=== PATIENT | female | born 1960 | race Caucasian/White ===

== ENCOUNTER 2016-06-02 14:23 | Emergency (ER) | payer OTHER ==
--- NOTE | 2016-06-02 19:28 | ED ORDER SUMMARY ---
..... Patient: BRANDEN MARTINEZ OrderSheet [facility] VisitID: [id number] [address] [place] [address] 55y, F Registration Date/Time: 06/02/2016 ORDER SHEET Weight: 76.6 kg (stated) Allergies: Percocet GENERAL ORDERS: Rapid Influenza Screen (Nasal Pharyngeal) (flu) Urgent (14:37 06/02/2016 ASchmuck per protocol) (Ack 14:54 RKaruga) (14:59 ASchmuck) CBC w Diff Urgent (14:49 06/02/2016 KKnebel R.N. per protocol) (Ack 14:54 RKaruga) (14:59 ASchmuck) CMP Urgent (14:49 06/02/2016 KKnebel R.N. per protocol) (Ack 14:54 RKaruga) (14:59 ASchmuck) - (po challenge fluids) (16:38 06/02/2016 Jazzy MONGE) (16:47 ASchmuck) MEDICATION ORDERS: Phenergan IV 12.5 mg (NOW) (16:37 06/02/2016 Jazzy MONGE) (16:49 ASchmuck) Hydrocodone-APAP PO 10/650 mg (NOW) (16:38 06/02/2016 Jazzy MONGE) (16:49 ASchmuck) IV FLUIDS: IV Saline Lock (14:49 06/02/2016 Brit R.N. per protocol) (14:50 KKnebel R.N.) IV NS : initial bolus 1000 mL (1000 mL/hr), then 500 mL/hr for 2h (NOW); Routine (15:26 06/02/2016 Jazzy MONGE) (15:35 ASchmuck) Zofran IV 4 mg (NOW) (15:26 06/02/2016 Jazzy MONGE) (15:35 ASchmuck) ORDER SHEET NOTES: [Electronically signed by Cong Stanton MD (20:08 06/02/2016)] [Electronically signed by Tk Carlson R.N. (20:33 06/02/2016)] [Electronically locked/signed by Tk Carlson R.N. (20:33 06/02/2016)]
--- NOTE | 2016-06-02 19:28 | ED CLINICAL REPORT ---
Clinical Report - Physicians/Mid Levels [facility] [address] [place] [address] 06/02/2016 14:23 Patient: BRANDEN MARTINEZ Time Seen: 15:21 Jun 02 2016. Arrived- By private vehicle. Historian- patient. CPT: ER phys charges level 4 (#[id number]). HISTORY OF PRESENT ILLNESS Chief Complaint: VOMITING and DIARRHEA. This started about 5 days ago and is still present. The patient has had nausea, moderate vomiting. The vomiting has occurred several times and mild abdominal pain. The pain is described as located in the central area of the abdomen. She has had moderate diarrhea. This has occurred several times. She has had contact with a sick family member. Symptoms of the sick contact include nausea, vomiting and diarrhea. They have had similar symptoms. The illness is described as moderate. Similar symptoms previously: None. Recent medical care: Not recently seen/assessed. REVIEW OF SYSTEMS No fever, muscle aches, difficulty with urination, dark urine or dizziness. No sore throat, chest pain, difficulty breathing, skin rash or jaundice. No back pain. She has had a headache. She has had a cough (chronically). All systems otherwise negative, except as recorded above. PAST HISTORY Dental Caries. Dental Abscess. Dental Pain. Back Pain. Arthritis. COPD - Chronic Obstructive Pulmonary Disease. Medications: Cris-D Allergy & Congestion Oral. Albuterol Sulfate Inhalation. Nebulizer. Omeprazole Oral. Spiriva HandiHaler Inhalation. Allergies: Percocet.(vomiting). SOCIAL HISTORY Smoker- current status unknown. ADDITIONAL NOTES The nursing notes have been reviewed. PHYSICAL EXAM Vital Signs: 06/02/2016 14:36 BP: 107/52. HR: 76. RR: 17. O2 saturation: 95%. Temp: 100.5 F. Appearance: Alert. No acute distress. Eyes: Eyes normal inspection. ENT: Nose normal. Dry mucous membranes present. Pharynx normal. Neck: Normal inspection. Neck supple. CVS: Normal heart rate and rhythm. Heart sounds normal. Pulses normal. Respiratory: No respiratory distress. Breath sounds normal. Abdomen: Soft and nontender. Bowel sounds normal. Back: Normal inspection. Skin: Skin warm. Normal skin color. No rash. Extremities: Extremities exhibit normal ROM. No lower extremity edema. Neuro: Oriented X 3. No motor deficit. No sensory deficit. LABS, X-RAYS, AND EKG Laboratory Tests: CBC w Diff: (BRADY: 06/02/2016 14:44) ( MsgRcvd 06/02/2016 15:05) Final results Test Result Flag Units (Reference) WHITE BLOOD COUNT 5.7 K/uL (4.5-11.5) RED BLOOD COUNT 4.52 M/uL (4.00-5.20) HEMOGLOBIN 13.6 gm/dL (12.0-16.0) HEMATOCRIT 40.3 % (36.0-46.0) MEAN CELL VOLUME 89 fL (80-100) MEAN CORPUSCULAR HGB 30 pg (26-34) MEAN CORPUSCULAR HGB CONC 34 g/dL (31-37) RED CELL DISTRIBUTION WIDTH 14.0 % (11.6-14.8) PLATELET COUNT 179 K/uL (150-400) NEUTROPHIL % 75.4 H % (50-75) LYMPH % 12.7 L % (25-40) MONO % 11.7 % (3-14) EOSINOPHIL % 0 % (0-4) BASOPHIL % 0.2 % (0-2) CMP: (BRADY: 06/02/2016 14:44) ( MsgRcvd 06/02/2016 15:48) Final results Test Result Flag Units (Reference) GLUCOSE 110 mg/dL (70-110) BUN 21 H mg/dL (7-18) CREATININE 1.1 mg/dL (0.6-1.3) Estimated GFR 54.41 mL/min Estimated GFR- >60 mL/min Note: Persistent reduction over 3 months in eGFR<60 mL/min/1.73 m2 defines CKD. Patients with eGFR values>=60 mL/min/1.73 m2 may also have CKD if evidence ofpersistent proteinuria. Additional information may be foundat www.kidney.org. SODIUM 135 L mmol/L (136-145) POTASSIUM 3.6 mmol/L (3.5-5.1) CHLORIDE 98 mmol/L (98-107) CARBON DIOXIDE 27 mmol/L (21-32) CALCIUM 8.9 mg/dL (8.5-10.1) TOTAL PROTEIN 7.6 g/dL (6.4-8.2) ALBUMIN 3.4 g/dL (3.3-5.0) BILIRUBIN, TOTAL 0.3 mg/dL (0.0-1.0) ALKALINE PHOSPHATASE 83 U/L (46-116) AST (SGOT) 32 U/L (15-37) ALT (SGPT) 50 U/L (12-78) Rapid Influenza Screen: (BRADY: 06/02/2016 14:40) ( MsgRcvd 06/02/2016 15:03) Final results SPECIMEN DESCRIPTION: FLU Test Result Flag Units (Reference) RAPID INFLUENZA SCREEN DATE: 06/02/16 INFLUENZA A: NEGATIVE SCREEN FOR INFLUENZA A INFLUENZA B: NEGATIVE SCREEN FOR INFLUENZA B . PROGRESS AND PROCEDURES Course of Care: IV NS 1 liter Zofran 4 mg IV Patient is stable. Symptoms much better. Passed po challenge. Vicodin 2 [po. Patient/family counseled. Disposition: Discharged. Condition: stable and improved. CLINICAL IMPRESSION Acute viral gastroenteritis with volume depletion. Headache due to illness. INSTRUCTIONS Take clear liquids only (frequent sips) for the next 48 hours until better. Advance diet as tolerated. Warnings: Further evaluation is necessary. Your Current Medications: CONTINUE TAKING THE FOLLOWING MEDICATIONS: Albuterol Sulfate Inhalation. Cris-D Allergy & Congestion Oral. Nebulizer*. Omeprazole Oral. Spiriva HandiHaler Inhalation. Prescription Medications: Zofran (orally disintegrating tablets) 4 mg: take 1 orally every 6 hours as needed for nausea. Dispense ten (10). No refill. Follow-up: Follow up with your doctor in five days if not better. Understanding of the discharge instructions verbalized by patient. Discharge instructions reviewed with and understanding was verbalized by classifying machine operator. (Electronically signed by Cong Stanton MD 06/02/2016 20:08)
--- NOTE | 2016-06-02 19:28 | ED NURSING NOTES ---
Clinical Report - Nurses [facility] [address] [place] [address] 06/02/2016 14:23 Patient: BRANDEN MARTINEZ TRIAGE Triage time 14:30 Jun 02 2016. Acuity: LEVEL 3. Chief Complaint: COUGH and (N/V/D). 14:36 06/02/16. Alert. No acute distress. SEPSIS SCREEN: Sepsis Screen. Negative (no infection suspected/documented). DODIE COMA SCORE: Dodie Coma Scale: 15- eyes open spontaneously (4); best verbal response- oriented x 4 (5); best motor response- obeys commands (6). --14:36 Cassie Riggins 14:36 06/02/16. BP: 107/52. HR: 76. RR: 17. O2 saturation: 95%. Temp: 100.5 F. Pain level now 8/10. --14:36 Cassie Riggins. Weight: 76.6 kg stated. Height/Length: 65 inches Per Patient. BMI: 28.1. --14:35 Cassie Riggins. Medications Spiriva HandiHaler Inhalation. --14:33 Cassie Riggins Omeprazole Oral. --14:34 Cassie Riggins Nebulizer. --14:34 Cassie Riggins Albuterol Sulfate Inhalation. --14:34 Cassie Riggins Cris-D Allergy & Congestion Oral. --14:34 Cassie Riggins. Medication/allergy information source: the patient. --14:36 Cassie Riggins. Allergies Percocet.(vomiting) --14:33 Cassie Riggins. History Arrived by EMS. Historian: patient. Unaccompanied. Primary physician (Joshua). Onset. (Sunday). ( Pt reports that she has been sick since Sunday. Has headache and body aches.). She has had fatigue, a headache, abdominal pain, vomiting and diarrhea. No known contact with a sick individual. No recent travel. 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 PAST MEDICAL HX: Chronic obstructive pulmonary disease. No history of pneumonia, asthma or diabetes mellitus. Immunizations: up-to-date and has received pneumonia vaccine; seasonal influenza. SOCIAL HX: No recent travel. She has had contact with a sick family member. FALL RISK ASSESSMENT: Fall risk assessment completed. No fall risk identified. NUTRITIONAL RISK ASSESSMENT: The nutritional risk assessment revealed no deficiencies. FUNCTIONAL ASSESSMENT: Functional assessment: no impairments noted. LEARNING NEEDS ASSESSMENT: The learning needs assessment revealed no barriers. SKIN INTEGRITY ASSESSMENT: Skin integrity risk assessment completed. No skin integrity risk identified. --14:36 Cassie Riggins. PROBLEMS: Dental Caries. Dental Abscess. Dental Pain. Back Pain. Arthritis. COPD - Chronic Obstructive Pulmonary Disease. --14:33 Cassie Riggins. Assessment The patient states feels the same. --14:36 Cassie Riggins. Interventions ID band on patient. --14:36 Cassie Riggins. PHYSICAL ASSESSMENT 14:36 06/02/16. To room via stretcher. Patient gowned. GENERAL / NEURO / PSYCH: Alert. Oriented X 4. Appears in no acute distress. HEENT: Pupils equal, round and reactive to light. Mucous membranes are pink. RESPIRATORY: Respirations not labored. CVS: Capillary refill less than 2 seconds. Pulses within normal limits. GI / : Abdomen soft. SKIN: Skin intact. Skin is warm and dry. Normal skin turgor. --14:36 Cassie Riggins. NURSING PROGRESS NOTES 14:37 06/02/16. The plan of care for this patient has been created. Pulse oximeter applied; monitor alarms on. Patient gowned. Head of bed elevated. Reassurance given. Two patient identifiers checked. Call light placed in reach. Side rails up x 1. Bed placed in lowest position. Brakes of bed on. Patient ready for evaluation- chart flagged and ED physician and HOURLY SHIFT MANAGER notified. --14:37 Cassie Riggins 14:40 06/02/16. Patient ID band checked for patient name and birthdate: patient confirmed. Flu swab obtained by RN via nasal pharyngeal swab. Labeled in the presence of the patient and sent to lab. --14:57 Cassie Riggins 14:44 06/02/2016 Site #1 started via IV in the left hand with an 22g angiocath, with aseptic technique and good blood return; one attempt. Blood drawn: rainbow set. Labeled in the presence of the patient and sent to the lab. Saline lock flushed with 10 mL saline. --14:49 Nicky Shukla R.N. 15:23 06/02/16. BP: 107/52. HR: 70. RR: 17. O2 saturation: 96% on room air. --15:24 Cassie Riggins 15:35 06/02/2016 Started bag #1 1000 mL IV Fluids IV NS (Saline); at 1000 mL/hr over 1 hour(s) via site #1 via IV pump. Allergies verified and confirmed 5 rights. IV patency established. IV site checked: no pain, redness, or swelling. IV flushed thoroughly pre- and post-medication administration. --15:35 Cassie Riggins 15:35 06/02/2016 Zofran (Ondansetron HCl) IVP 4 mg given over 1 minute(s) via site #1. Allergies verified and confirmed 5 rights. IV patency established. IV site checked: no pain, redness, or swelling. IV flushed thoroughly pre- and post-medication administration. IVP given by RN. --15:35 Cassie Riggins 16:32 06/02/16. BP: 100/47. HR: 74. RR: 16. O2 saturation: 97%. --16:34 Cassie Riggins 16:38 06/02/2016 IV Fluids IV NS Bag Change: bag #1 infused. Total amount infused: 1000. STARTED bag #2 (1000 mL) at 500 mL/hr via IV pump. Confirmed 5 rights. IV patency established. IV site checked: no pain, redness, or swelling. IV flushed thoroughly. --16:38 Cassie Riggins 16:48 06/02/2016 Started 12.5 mg of PHENERGAN (Promethazine HCl) IVPB in bag #1 50 mL; at 200 mL/hr over 15 minute(s) via site #1 via IV pump. Allergies verified and confirmed 5 rights. IV patency established. IV site checked: no pain, redness, or swelling. IV flushed thoroughly pre- and post-medication administration. --16:49 Cassie Riggins 16:49 06/02/2016 Hydrocodone-APAP (Hydrocodone-Acetaminophen) PO 5/325 mg Tablets 1 tab given. Allergies verified, confirmed 5 rights and sedative warning given to the patient. --16:49 Cassie Riggins 17:08 06/02/16. Care transferred and report given (Tk, RN). --17:08 Cassie Riggins 17:30. ( Patient reported some incontinence of urine. Helped PT with a change of incontinence underwear and changed bed linen. helped pt up for toileting and settled back in to bed. Visitor at bedside when settled back). --17:40 Shivani Fishman 18:15 06/02/16. ( Pt took a sip of water about 5 minutes ago and tolerated it without N/V.). --18:19 Tk Carlson R.N. 18:45 06/02/2016 IV Fluids IV NS Discontinued: bag #2 infused. Total amount infused: 1000 mL. IV patency established. IV site checked: no pain, redness, or swelling. IV flushed thoroughly. --20:29 Tk Carlson R.N. 19:05 06/02/2016 Site #1 removed upon discharge. Catheter intact. Manual pressure, pressure dressing and bandaid applied. --20:30 Tk Carlson R.N. 18:15 06/02/16. BP: 108/55. HR: 71. RR: 16. O2 saturation: 96% on room air. Pain level now: 06/16. Additional comments: pain is BAPTISTE. --20:32 Tk Carlson R.N. DISPOSITION / DISCHARGE 19:00 06/02/16. BP: 101/46. HR: 66. RR: 16. O2 saturation: 96% on room air. Temp: 98.7 F (oral). Pain level now: 04/18. Additional comments: pain is BAPTISTE. --20:02 Tk Carlson R.N. Departure time: 1924. --20:02 Tk Carlson R.N. 19:25. Condition at departure: improved. No learning barriers present. Discharge instructions provided and reviewed with the patient. Reviewed medication(s) (prescription given to pt. Cntinue your usual Medications.). Reviewed referral to family practice for followup. Patient verbalized understanding. Written instructions provided in Micronesian. The patient was discharged by the physician. She was discharged home and accompanied by municipal services manager. She left the Emergency Department ambulatory and via private vehicle. Overhead Irrigator driving. --20:06 Tk Carlson R.N. Locked/Released at 06/02/2016 20:33 by Tk Carlson R.N.
--- NOTE | 2016-06-02 19:28 | ED ORDER SUMMARY ---
..... Patient: BRANDEN MARTINEZ OrderSheet [facility] VisitID: [id number] [address] [place] [address] 55y, F Registration Date/Time: 06/02/2016 ORDER SHEET Weight: 76.6 kg (stated) Allergies: Percocet GENERAL ORDERS: Rapid Influenza Screen (Nasal Pharyngeal) (flu) Urgent (14:37 06/02/2016 ASchmuck per protocol) (Ack 14:54 RKaruga) (14:59 ASchmuck) CBC w Diff Urgent (14:49 06/02/2016 KKnebel R.N. per protocol) (Ack 14:54 RKaruga) (14:59 ASchmuck) CMP Urgent (14:49 06/02/2016 KKnebel R.N. per protocol) (Ack 14:54 RKaruga) (14:59 ASchmuck) - (po challenge fluids) (16:38 06/02/2016 Jazzy MONGE) (16:47 ASchmuck) MEDICATION ORDERS: Phenergan IV 12.5 mg (NOW) (16:37 06/02/2016 Jazzy MONGE) (16:49 ASchmuck) Hydrocodone-APAP PO 10/650 mg (NOW) (16:38 06/02/2016 Jazzy MONGE) (16:49 ASchmuck) IV FLUIDS: IV Saline Lock (14:49 06/02/2016 Brit R.N. per protocol) (14:50 KKnebel R.N.) IV NS : initial bolus 1000 mL (1000 mL/hr), then 500 mL/hr for 2h (NOW); Routine (15:26 06/02/2016 Jazzy MONGE) (15:35 ASchmuck) Zofran IV 4 mg (NOW) (15:26 06/02/2016 Jazzy MONGE) (15:35 ASchmuck) ORDER SHEET NOTES: [Electronically signed by Cong Stanton MD (20:08 06/02/2016)] [Electronically signed by Tk Carlson R.N. (20:33 06/02/2016)] [Electronically locked/signed by Tk Carlson R.N. (20:33 06/02/2016)]
--- NOTE | 2016-06-02 19:28 | ED CLINICAL REPORT ---
Clinical Report - Physicians/Mid Levels [facility] [address] [place] [address] 06/02/2016 14:23 Patient: BRANDEN MARTINEZ Time Seen: 15:21 Jun 02 2016. Arrived- By private vehicle. Historian- patient. CPT: ER phys charges level 4 (#[id number]). HISTORY OF PRESENT ILLNESS Chief Complaint: VOMITING and DIARRHEA. This started about 5 days ago and is still present. The patient has had nausea, moderate vomiting. The vomiting has occurred several times and mild abdominal pain. The pain is described as located in the central area of the abdomen. She has had moderate diarrhea. This has occurred several times. She has had contact with a sick family member. Symptoms of the sick contact include nausea, vomiting and diarrhea. They have had similar symptoms. The illness is described as moderate. Similar symptoms previously: None. Recent medical care: Not recently seen/assessed. REVIEW OF SYSTEMS No fever, muscle aches, difficulty with urination, dark urine or dizziness. No sore throat, chest pain, difficulty breathing, skin rash or jaundice. No back pain. She has had a headache. She has had a cough (chronically). All systems otherwise negative, except as recorded above. PAST HISTORY Dental Caries. Dental Abscess. Dental Pain. Back Pain. Arthritis. COPD - Chronic Obstructive Pulmonary Disease. Medications: Cris-D Allergy & Congestion Oral. Albuterol Sulfate Inhalation. Nebulizer. Omeprazole Oral. Spiriva HandiHaler Inhalation. Allergies: Percocet.(vomiting). SOCIAL HISTORY Smoker- current status unknown. ADDITIONAL NOTES The nursing notes have been reviewed. PHYSICAL EXAM Vital Signs: 06/02/2016 14:36 BP: 107/52. HR: 76. RR: 17. O2 saturation: 95%. Temp: 100.5 F. Appearance: Alert. No acute distress. Eyes: Eyes normal inspection. ENT: Nose normal. Dry mucous membranes present. Pharynx normal. Neck: Normal inspection. Neck supple. CVS: Normal heart rate and rhythm. Heart sounds normal. Pulses normal. Respiratory: No respiratory distress. Breath sounds normal. Abdomen: Soft and nontender. Bowel sounds normal. Back: Normal inspection. Skin: Skin warm. Normal skin color. No rash. Extremities: Extremities exhibit normal ROM. No lower extremity edema. Neuro: Oriented X 3. No motor deficit. No sensory deficit. LABS, X-RAYS, AND EKG Laboratory Tests: CBC w Diff: (BRADY: 06/02/2016 14:44) ( MsgRcvd 06/02/2016 15:05) Final results Test Result Flag Units (Reference) WHITE BLOOD COUNT 5.7 K/uL (4.5-11.5) RED BLOOD COUNT 4.52 M/uL (4.00-5.20) HEMOGLOBIN 13.6 gm/dL (12.0-16.0) HEMATOCRIT 40.3 % (36.0-46.0) MEAN CELL VOLUME 89 fL (80-100) MEAN CORPUSCULAR HGB 30 pg (26-34) MEAN CORPUSCULAR HGB CONC 34 g/dL (31-37) RED CELL DISTRIBUTION WIDTH 14.0 % (11.6-14.8) PLATELET COUNT 179 K/uL (150-400) NEUTROPHIL % 75.4 H % (50-75) LYMPH % 12.7 L % (25-40) MONO % 11.7 % (3-14) EOSINOPHIL % 0 % (0-4) BASOPHIL % 0.2 % (0-2) CMP: (BRADY: 06/02/2016 14:44) ( MsgRcvd 06/02/2016 15:48) Final results Test Result Flag Units (Reference) GLUCOSE 110 mg/dL (70-110) BUN 21 H mg/dL (7-18) CREATININE 1.1 mg/dL (0.6-1.3) Estimated GFR 54.41 mL/min Estimated GFR- >60 mL/min Note: Persistent reduction over 3 months in eGFR<60 mL/min/1.73 m2 defines CKD. Patients with eGFR values>=60 mL/min/1.73 m2 may also have CKD if evidence ofpersistent proteinuria. Additional information may be foundat [email or web address].org. SODIUM 135 L mmol/L (136-145) POTASSIUM 3.6 mmol/L (3.5-5.1) CHLORIDE 98 mmol/L (98-107) CARBON DIOXIDE 27 mmol/L (21-32) CALCIUM 8.9 mg/dL (8.5-10.1) TOTAL PROTEIN 7.6 g/dL (6.4-8.2) ALBUMIN 3.4 g/dL (3.3-5.0) BILIRUBIN, TOTAL 0.3 mg/dL (0.0-1.0) ALKALINE PHOSPHATASE 83 U/L (46-116) AST (SGOT) 32 U/L (15-37) ALT (SGPT) 50 U/L (12-78) Rapid Influenza Screen: (BRADY: 06/02/2016 14:40) ( MsgRcvd 06/02/2016 15:03) Final results SPECIMEN DESCRIPTION: FLU Test Result Flag Units (Reference) RAPID INFLUENZA SCREEN DATE: 06/02/16 INFLUENZA A: NEGATIVE SCREEN FOR INFLUENZA A INFLUENZA B: NEGATIVE SCREEN FOR INFLUENZA B . PROGRESS AND PROCEDURES Course of Care: IV NS 1 liter Zofran 4 mg IV Patient is stable. Symptoms much better. Passed po challenge. Vicodin 2 [po. Patient/family counseled. Disposition: Discharged. Condition: stable and improved. CLINICAL IMPRESSION Acute viral gastroenteritis with volume depletion. Headache due to illness. INSTRUCTIONS Take clear liquids only (frequent sips) for the next 48 hours until better. Advance diet as tolerated. Warnings: Further evaluation is necessary. Your Current Medications: CONTINUE TAKING THE FOLLOWING MEDICATIONS: Albuterol Sulfate Inhalation. Cris-D Allergy & Congestion Oral. Nebulizer*. Omeprazole Oral. Spiriva HandiHaler Inhalation. Prescription Medications: Zofran (orally disintegrating tablets) 4 mg: take 1 orally every 6 hours as needed for nausea. Dispense ten (10). No refill. Follow-up: Follow up with your doctor in five days if not better. Understanding of the discharge instructions verbalized by patient. Discharge instructions reviewed with and understanding was verbalized by ophthalmic technologist. (Electronically signed by Cong Stanton MD 06/02/2016 20:08)
--- NOTE | 2016-06-02 20:33 | ED MED RECONCILIATION SUMMARY ---
Patient: BRANDEN MARTINEZ Medication Reconciliation Report [facility] VisitID: [id number] [address] [place] [address] 55y, F Registration Date/Time: 06/02/2016 Weight: 76.6 kg Height/Length: 65 in. BMI: 28.1 ALLERGIES: Percocet The patient's Home Medications are listed below: CONTINUE TAKING THE FOLLOWING MEDICATIONS: Albuterol Sulfate Inhalation Cris-D Allergy & Congestion Oral Nebulizer Omeprazole Oral Spiriva HandiHaler Inhalation The source(s) of the original Home Medication information: patient The following Medications were given to the patient in the Emergency Department: IV NS IV Fluids bolus 0, then 1000 mL/hr, administered: 06/02/2016 3:35:00 PM Zofran [IVP] IVP 4 mg, administered: 06/02/2016 3:35:00 PM PHENERGAN [IVPB] IVPB bolus 0, then 12.5 mg 200 mL/hr, administered: 06/02/2016 4:48:00 PM Hydrocodone-APAP [PO] PO 1 tab, administered: 06/02/2016 4:49:00 PM The following Medications were prescribed to the patient: Zofran (orally disintegrating tablets) 4 mg: take 1 orally every 6 hours as needed for nausea. Dispense ten (10). No refill. -- Cong Stanton MD
--- NOTE | 2016-06-02 20:33 | ED DISCHARGE INSTRUCTIONS ---
Patient: BRANDEN MARTINEZ General Instructions [facility] VisitID: [id number] [place] [address] 55y, F Registration Date/Time: 06/02/2016 Acute viral gastroenteritis with volume depletion. Headache due to illness. INSTRUCTIONS Take clear liquids only (frequent sips) for the next 48 hours until better. Advance diet as tolerated. Warnings: Further evaluation is necessary. Your Current Medications: CONTINUE TAKING THE FOLLOWING MEDICATIONS: Albuterol Sulfate Inhalation. Cris-D Allergy & Congestion Oral. Nebulizer*. Omeprazole Oral. Spiriva HandiHaler Inhalation. Prescription Medications: Zofran (orally disintegrating tablets) 4 mg: take 1 orally every 6 hours as needed for nausea. Dispense ten (10). No refill. Follow-up: Follow up with your doctor in five days if not better. Understanding of the discharge instructions verbalized by patient. Discharge instructions reviewed with and understanding was verbalized by network liaison. ADDITIONAL INFORMATION Viral Gastroenteritis (6Yr-Adult) Gastroenteritis is another name for thestomach flu.It is most often caused by a virus that affects the stomach and intestinal tract. Symptoms include stomach cramping and fever, vomiting and/or diarrhea, and can last from 2 to 7 days. The danger from repeated vomiting or diarrhea is dehydration. This is the loss of too much water and minerals from the body. When this occurs, body fluids must be replaced. Antibiotics are not effective for this illness, but simple home treatment will be helpful. Home Care If symptoms are severe, rest at home for the next 24 hours. Avoid tobacco, caffeine, and alcohol use, which can worsen symptoms. Acetaminophen (Tylenol) or ibuprofen (Motrin, Advil) may be usedfor fever or pain unless another medication was prescribed. NOTE: If you have chronic liver or kidney disease or ever had a stomach ulcer or GI bleeding, talk with your doctor before using these medicines. Aspirin should never be used in anyone under 18 years of age who is ill with a fever. It may cause severe liver damage. If medicines for diarrhea or vomiting were prescribed, be sure they are takenonly as directed. If vomiting, drink small amounts of clear fluids (such as water, sports drinks, clear sodas) at frequent intervals to prevent dehydration. Start with 1 to 2 tablespoons every 10 minutes. Once vomiting stops, follow these guidelines: During The First 12 To 24 Hours follow the diet below: Beverages: Sport drinks like Gatorade, soft drinks without caffeine; virgil divya, mineral water (plain or flavored), decaffeinated tea and coffee. Soups: Clear broth, consomm and bouillon Desserts: Plain gelatin (Jell-O), Popsicles and fruit juice bars. During The Next 24 Hours you may add the following to the above: Hot cereal, plain toast, bread, rolls, crackers Plain noodles, rice, mashed potatoes, chicken noodle or rice soup Unsweetened canned fruit (avoid pineapple), bananas Limit fat intake to less than 15 grams per day by avoiding margarine, butter, oils, mayonnaise, sauces, gravies, fried foods, peanut butter, meat, poultry, and fish. Limit fiber; avoid raw or cooked vegetables, fresh fruits (except bananas), and bran cereals. Limit caffeine and chocolate. Do not use spices or seasonings except salt. During The Next 24 Hours The patient can gradually resume a normal diet as symptoms lessen. Preventing Spread Hand washing with soap and water is the best way to prevent the spread of viruses. Caregivers should wash their hands before andafter touching the sick person. The sick person, as well as everyone in the family,should wash their hands after using the toilet and before meals. Clean the toilet after each use. People with diarrhea should not prepare food for others. If you are preparing your own foods, wash your hands before and after. Follow Up with your doctor as advised. Call your doctor if you are not improving over the next 2 to 3 days. If a stool (diarrhea) sample was taken, you may call in 2 days (or as directed) for the results. Get Prompt Medical Attention if any of the following occur: Increasing abdominal pain Continued vomiting (unable to keep liquids down) Frequent diarrhea (more than 5 times a day) Blood in vomit or stool (black or red color) Dark urine, reduced urine output, or extreme thirst Weakness, dizziness, fainting Drowsiness, confusion, stiff neck, or seizure Fever of 100.4F (38C) oral or higher, not better with fever medication New rash Clear Liquid Diet Clear liquids are any liquid that you can see through as well as those that are very easy to digest. This is used while the body is recovering from irritation or infection of the stomach or intestinal tract. It may also be used before special procedures or surgery. This diet is to be used no more than three days. You may include the following items. Adults Adults should drink a total of 23 quarts of liquid per day. It may be easier to drink small frequent servings rather than a few large ones. Liquids can include: Fruit juices.Strained orange juice or lemonade (no pulp), apple, grape and cranberry juice, clear fruit drinks, sports drinks Beverages.Sport drinks, sodas, mineral water (plain or flavored), tea, black coffee, liquid gelatin (add twice the recommended amount of water) Soups.Clear broth, consomm, bouillon Desserts.Plain gelatin, popsicles, fruit juice bars Children Over 2 years old The following liquids are acceptable for children over age 2: Fruit juices.Strained orange juice or lemonade (no pulp), apple, grape and cranberry juice, clear fruit drinks Beverages. Sports drinks, sodas, mineral water (plain or flavored), tea, liquid gelatin (add twice the recommended amount of water) Soups. Clear broth, consomm, bouillon Desserts. Plain gelatin, popsicles, fruit juice bars Children under 2 years old Oral rehydration fluids such are available at drug stores and most grocery stores without a prescription. Ondansetron Oral disintegrating tablet What is this medicine? ONDANSETRON (on CARIN se sara) is used to treat nausea and vomiting caused by chemotherapy. It is also used to prevent or treat nausea and vomiting after surgery. How should I use this medicine? These tablets are made to dissolve in the mouth. Do not try to push the tablet through the foil backing. With dry hands, peel away the foil backing and gently remove the tablet. Place the tablet in the mouth and allow it to dissolve, then swallow. While you may take these tablets with water, it is not necessary to do so. Talk to your mental health nurse regarding the use of this medicine in children. Special care may be needed. What side effects may I notice from receiving this medicine? Side effects that you should report to your doctor or health health care marketing manager as soon as possible: allergic reactions like skin rash, itching or hives, swelling of the face, lips, or tongue breathing problems dizziness fast or irregular heartbeat feeling faint or lightheaded, falls fever and chills swelling of the hands and feet tightness in the chest Side effects that usually do not require medical attention (report to your doctor or health health care marketing manager if they continue or are bothersome): constipation or diarrhea headache What may interact with this medicine? Do not take this medicine with any of the following medications: -apomorphine -cisapride -dofetilide -dronedarone -pimozide -thioridazine -ziprasidone This medicine may also interact with the following medications: -carbamazepine -phenytoin -rifampicin -tramadol -other medicines that prolong the QT interval (cause an abnormal heart rhythm) What if I miss a dose? If you miss a dose, take it as soon as you can. If it is almost time for your next dose, take only that dose. Do not take double or extra doses. Where should I keep my medicine? Keep out of the reach of children. Store between 2 and 30 degrees C (36 and 86 degrees F). Throw away any unused medicine after the expiration date. What should I tell my health care provider before I take this medicine? They need to know if you have any of these conditions: heart disease history of irregular heartbeat liver disease low levels of magnesium or potassium in the blood an unusual or allergic reaction to ondansetron, granisetron, other medicines, foods, dyes, or preservatives or trying to get breast-feeding What should I watch for while using this medicine? Check with your doctor or health health care marketing manager as soon as you can if you have any sign of an allergic reaction. You have been given the following additional information: Gastroenteritis, Viral (6Y-Adult) Diet, Clear Liquid Ondansetron Oral disintegrating tablet (Electronically signed by Cong Stanton MD 06/02/2016 20:08)
--- NOTE | 2016-06-02 20:33 | ED MAR SUMMARY ---
..... Medication Administration Record [facility] [address] [place] [address] Patient: BRANDEN MARTINEZ Visit ID: [id number] 55y, F Weight: 76.6 kg Height/Length: 65 in BMI: 28.1 ALLERGIES: Percocet Start 15:35 06/02/2016 Cassie Riggins,, Stop 18:45 06/02/2016 Tk Carlson R.N. Medication Administered: IV NS (SALINE), Dose: IV Fluids over 1 hour(s), Rate: 1000 mL/hr, Dispensed: 1000 mL bag, Site: #1 left hand. Medication Ordered: IV NS : initial bolus 1000 mL (1000 mL/hr), then 500 mL/hr for 2h (NOW); Routine. Given 15:35 06/02/2016 Cassie Riggins, Medication Administered: ZOFRAN [IVP] (ONDANSETRON HCL), Dose: 4 mg IVP over 1 minute(s), Site: #1 left hand. Medication Ordered: Zofran IV 4 mg (NOW). Start 16:48 06/02/2016 Cassie Riggins, Medication Administered: PHENERGAN [IVPB] (PROMETHAZINE HCL), Dose: 12.5 mg IVPB over 15 minute(s), Rate: 200 mL/hr, Dispensed: 50 mL bag, Site: #1 left hand. Medication Ordered: Phenergan IV 12.5 mg (NOW). Given 16:49 06/02/2016 Cassie Riggins, Medication Administered: HYDROCODONE-APAP [PO] (HYDROCODONE-ACETAMINOPHEN), Dose: 1 tab 5/325 mg Tablets PO. Medication Ordered: Hydrocodone-APAP PO 10/650 mg (NOW).
--- NOTE | 2016-06-02 20:33 | ED MED RECONCILIATION SUMMARY ---
Patient: BRANDEN MARTINEZ Medication Reconciliation Report [facility] VisitID: [id number] [address] [place] [address] 55y, F Registration Date/Time: 06/02/2016 Weight: 76.6 kg Height/Length: 65 in. BMI: 28.1 ALLERGIES: Percocet The patient's Home Medications are listed below: CONTINUE TAKING THE FOLLOWING MEDICATIONS: Albuterol Sulfate Inhalation Cris-D Allergy & Congestion Oral Nebulizer Omeprazole Oral Spiriva HandiHaler Inhalation The source(s) of the original Home Medication information: patient The following Medications were given to the patient in the Emergency Department: IV NS IV Fluids bolus 0, then 1000 mL/hr, administered: 06/02/2016 3:35:00 PM Zofran [IVP] IVP 4 mg, administered: 06/02/2016 3:35:00 PM PHENERGAN [IVPB] IVPB bolus 0, then 12.5 mg 200 mL/hr, administered: 06/02/2016 4:48:00 PM Hydrocodone-APAP [PO] PO 1 tab, administered: 06/02/2016 4:49:00 PM The following Medications were prescribed to the patient: Zofran (orally disintegrating tablets) 4 mg: take 1 orally every 6 hours as needed for nausea. Dispense ten (10). No refill. -- Cong Stanton MD
--- NOTE | 2016-06-02 20:33 | ED DISCHARGE INSTRUCTIONS ---
Patient: BRANDEN MARTINEZ General Instructions [facility] VisitID: [id number] [place] [address] 55y, F Registration Date/Time: 06/02/2016 Acute viral gastroenteritis with volume depletion. Headache due to illness. INSTRUCTIONS Take clear liquids only (frequent sips) for the next 48 hours until better. Advance diet as tolerated. Warnings: Further evaluation is necessary. Your Current Medications: CONTINUE TAKING THE FOLLOWING MEDICATIONS: Albuterol Sulfate Inhalation. Cris-D Allergy & Congestion Oral. Nebulizer*. Omeprazole Oral. Spiriva HandiHaler Inhalation. Prescription Medications: Zofran (orally disintegrating tablets) 4 mg: take 1 orally every 6 hours as needed for nausea. Dispense ten (10). No refill. Follow-up: Follow up with your doctor in five days if not better. Understanding of the discharge instructions verbalized by patient. Discharge instructions reviewed with and understanding was verbalized by vault manager. ADDITIONAL INFORMATION Viral Gastroenteritis (6Yr-Adult) Gastroenteritis is another name for thestomach flu.It is most often caused by a virus that affects the stomach and intestinal tract. Symptoms include stomach cramping and fever, vomiting and/or diarrhea, and can last from 2 to 7 days. The danger from repeated vomiting or diarrhea is dehydration. This is the loss of too much water and minerals from the body. When this occurs, body fluids must be replaced. Antibiotics are not effective for this illness, but simple home treatment will be helpful. Home Care If symptoms are severe, rest at home for the next 24 hours. Avoid tobacco, caffeine, and alcohol use, which can worsen symptoms. Acetaminophen (Tylenol) or ibuprofen (Motrin, Advil) may be usedfor fever or pain unless another medication was prescribed. NOTE: If you have chronic liver or kidney disease or ever had a stomach ulcer or GI bleeding, talk with your doctor before using these medicines. Aspirin should never be used in anyone under 18 years of age who is ill with a fever. It may cause severe liver damage. If medicines for diarrhea or vomiting were prescribed, be sure they are takenonly as directed. If vomiting, drink small amounts of clear fluids (such as water, sports drinks, clear sodas) at frequent intervals to prevent dehydration. Start with 1 to 2 tablespoons every 10 minutes. Once vomiting stops, follow these guidelines: During The First 12 To 24 Hours follow the diet below: Beverages: Sport drinks like Gatorade, soft drinks without caffeine; virgil diyva, mineral water (plain or flavored), decaffeinated tea and coffee. Soups: Clear broth, consomm and bouillon Desserts: Plain gelatin (Jell-O), Popsicles and fruit juice bars. During The Next 24 Hours you may add the following to the above: Hot cereal, plain toast, bread, rolls, crackers Plain noodles, rice, mashed potatoes, chicken noodle or rice soup Unsweetened canned fruit (avoid pineapple), bananas Limit fat intake to less than 15 grams per day by avoiding margarine, butter, oils, mayonnaise, sauces, gravies, fried foods, peanut butter, meat, poultry, and fish. Limit fiber; avoid raw or cooked vegetables, fresh fruits (except bananas), and bran cereals. Limit caffeine and chocolate. Do not use spices or seasonings except salt. During The Next 24 Hours The patient can gradually resume a normal diet as symptoms lessen. Preventing Spread Hand washing with soap and water is the best way to prevent the spread of viruses. Caregivers should wash their hands before andafter touching the sick person. The sick person, as well as everyone in the family,should wash their hands after using the toilet and before meals. Clean the toilet after each use. People with diarrhea should not prepare food for others. If you are preparing your own foods, wash your hands before and after. Follow Up with your doctor as advised. Call your doctor if you are not improving over the next 2 to 3 days. If a stool (diarrhea) sample was taken, you may call in 2 days (or as directed) for the results. Get Prompt Medical Attention if any of the following occur: Increasing abdominal pain Continued vomiting (unable to keep liquids down) Frequent diarrhea (more than 5 times a day) Blood in vomit or stool (black or red color) Dark urine, reduced urine output, or extreme thirst Weakness, dizziness, fainting Drowsiness, confusion, stiff neck, or seizure Fever of 100.4F (38C) oral or higher, not better with fever medication New rash Clear Liquid Diet Clear liquids are any liquid that you can see through as well as those that are very easy to digest. This is used while the body is recovering from irritation or infection of the stomach or intestinal tract. It may also be used before special procedures or surgery. This diet is to be used no more than three days. You may include the following items. Adults Adults should drink a total of 23 quarts of liquid per day. It may be easier to drink small frequent servings rather than a few large ones. Liquids can include: Fruit juices.Strained orange juice or lemonade (no pulp), apple, grape and cranberry juice, clear fruit drinks, sports drinks Beverages.Sport drinks, sodas, mineral water (plain or flavored), tea, black coffee, liquid gelatin (add twice the recommended amount of water) Soups.Clear broth, consomm, bouillon Desserts.Plain gelatin, popsicles, fruit juice bars Children Over 2 years old The following liquids are acceptable for children over age 2: Fruit juices.Strained orange juice or lemonade (no pulp), apple, grape and cranberry juice, clear fruit drinks Beverages. Sports drinks, sodas, mineral water (plain or flavored), tea, liquid gelatin (add twice the recommended amount of water) Soups. Clear broth, consomm, bouillon Desserts. Plain gelatin, popsicles, fruit juice bars Children under 2 years old Oral rehydration fluids such are available at drug stores and most grocery stores without a prescription. Ondansetron Oral disintegrating tablet What is this medicine? ONDANSETRON (on CARIN se sara) is used to treat nausea and vomiting caused by chemotherapy. It is also used to prevent or treat nausea and vomiting after surgery. How should I use this medicine? These tablets are made to dissolve in the mouth. Do not try to push the tablet through the foil backing. With dry hands, peel away the foil backing and gently remove the tablet. Place the tablet in the mouth and allow it to dissolve, then swallow. While you may take these tablets with water, it is not necessary to do so. Talk to your asbestos siding mechanic regarding the use of this medicine in children. Special care may be needed. What side effects may I notice from receiving this medicine? Side effects that you should report to your doctor or health director career services as soon as possible: allergic reactions like skin rash, itching or hives, swelling of the face, lips, or tongue breathing problems dizziness fast or irregular heartbeat feeling faint or lightheaded, falls fever and chills swelling of the hands and feet tightness in the chest Side effects that usually do not require medical attention (report to your doctor or health director career services if they continue or are bothersome): constipation or diarrhea headache What may interact with this medicine? Do not take this medicine with any of the following medications: -apomorphine -cisapride -dofetilide -dronedarone -pimozide -thioridazine -ziprasidone This medicine may also interact with the following medications: -carbamazepine -phenytoin -rifampicin -tramadol -other medicines that prolong the QT interval (cause an abnormal heart rhythm) What if I miss a dose? If you miss a dose, take it as soon as you can. If it is almost time for your next dose, take only that dose. Do not take double or extra doses. Where should I keep my medicine? Keep out of the reach of children. Store between 2 and 30 degrees C (36 and 86 degrees F). Throw away any unused medicine after the expiration date. What should I tell my health care provider before I take this medicine? They need to know if you have any of these conditions: heart disease history of irregular heartbeat liver disease low levels of magnesium or potassium in the blood an unusual or allergic reaction to ondansetron, granisetron, other medicines, foods, dyes, or preservatives or trying to get breast-feeding What should I watch for while using this medicine? Check with your doctor or health director career services as soon as you can if you have any sign of an allergic reaction. You have been given the following additional information: Gastroenteritis, Viral (6Y-Adult) Diet, Clear Liquid Ondansetron Oral disintegrating tablet (Electronically signed by Cong Stanton MD 06/02/2016 20:08)
--- NOTE | 2016-06-02 20:33 | ED MAR SUMMARY ---
..... Medication Administration Record [facility] [address] [place] [address] Patient: BRANDEN MARTINEZ Visit ID: [id number] 55y, F Weight: 76.6 kg Height/Length: 65 in BMI: 28.1 ALLERGIES: Percocet Start 15:35 06/02/2016 Cassie Riggins,, Stop 18:45 06/02/2016 Tk Carlson R.N. Medication Administered: IV NS (SALINE), Dose: IV Fluids over 1 hour(s), Rate: 1000 mL/hr, Dispensed: 1000 mL bag, Site: #1 left hand. Medication Ordered: IV NS : initial bolus 1000 mL (1000 mL/hr), then 500 mL/hr for 2h (NOW); Routine. Given 15:35 06/02/2016 Cassie Riggins, Medication Administered: ZOFRAN [IVP] (ONDANSETRON HCL), Dose: 4 mg IVP over 1 minute(s), Site: #1 left hand. Medication Ordered: Zofran IV 4 mg (NOW). Start 16:48 06/02/2016 Cassie Riggins, Medication Administered: PHENERGAN [IVPB] (PROMETHAZINE HCL), Dose: 12.5 mg IVPB over 15 minute(s), Rate: 200 mL/hr, Dispensed: 50 mL bag, Site: #1 left hand. Medication Ordered: Phenergan IV 12.5 mg (NOW). Given 16:49 06/02/2016 Cassie Riggins, Medication Administered: HYDROCODONE-APAP [PO] (HYDROCODONE-ACETAMINOPHEN), Dose: 1 tab 5/325 mg Tablets PO. Medication Ordered: Hydrocodone-APAP PO 10/650 mg (NOW).
== END 2016-06-02 19:20 | disposition home or self-care (01) ==
LOC: ED SRH 14:23
DX: A08.4 Viral intestinal infection, unspecified (principal); E86.9 Volume depletion, unspecified; R51 Headache; J44.9 Chronic obstructive pulmonary disease, unspecified; F17.200 Nicotine dependence, unspecified, uncomplicated; Z88.5 Allergy status to narcotic agent
CPT/HCPCS: 90100; 91400; 95059

== ENCOUNTER 2016-10-23 14:47 | Outpatient (CLI) | payer OTHER ==
--- NOTE | 2016-10-23 16:25 | DIAGNOSTIC IMAGING REPORT ---
PROCEDURE: MR UPPER EXTREMITY W/O CONT-LT INDICATION: TEAR OF ROTATOR CUFF TECHNIQUE: PD and PD fat sat axial, T1 and PD fat sat coronal, PD and STIR sagittal sequences through the shoulder. COMPARISON: None. Correlation made to incomplete shoulder MR 03/16/2016 FINDINGS: Rotator cuff: There is a large complete supraspinatus rotator cuff tear measuring about 13 mm in AP direction with retraction of the tendon to nearly the level of the glenohumeral joint. There is a full-thickness fissuring of the posterior aspect of the infraspinatus tendon measuring between one and 2 mm in thickness, near the insertion. The teres minor tendon is intact. The distal aspect of the subscapularis tendon is thickened with intermediate signal in the caudal aspect appears somewhat redundant. The transverse humeral ligament appears intact. Biceps tendon: Mild thickening and mild intrinsic intermediate signal of the intra-articular portion the biceps tendon. There is fluid in the rotator interval, however the superior glenohumeral ligament appears intact. Osseous structures and articular surfaces: Type 2 acromion with conventional anatomy. Minor hypertrophy at the acromioclavicular joint. Subcortical cystic change along the anteromedial humeral head and posterolateral humeral head impaction suggestive of remote Hill-Sachs fracture without underlying edema. The marrow signal is otherwise normal. Labral ligamentous complex: Irregularity and degenerative intermediate intrinsic signal involving the entire superior labrum. There is a tiny tear of the posterior inferior corner. Supporting ligaments of the humeral head appear intact. Fluid, soft tissues, and joint space: Large glenohumeral joint effusion decompressing proximal in the subscapularis recess, and over the supraspinatus myotendinous junction. Small amount of fluid is present posterior the glenoid. Moderate to large subacromial subdeltoid bursal effusion. Mild atrophy and fatty infiltration of the supraspinatus muscle and slight atrophy and fatty infiltration of the cranial infraspinatus. No significant debris or capsular thickening of the glenohumeral joint. IMPRESSION: 1. Chronic-appearing full-thickness supraspinatus rotator cuff tear with retraction of the tendon nearly to the level of the glenohumeral joint. 2. Full-thickness fissure of the posterior infraspinatus rotator cuff tendon. 3. Tendinopathy of the distal subscapularis tendon. 4. Mild intra-articular biceps tendinopathy. 5. Degeneration of the entire superior labrum and a tiny posterior inferior labral fissure. 6. Large, chronic glenohumeral joint effusion. No MR findings of adhesive capsulitis. 7. Humeral head morphology raising possibility of remote, healed Hill-Sachs impaction fracture.
== END 2016-10-23 23:00 ==
LOC: MRI SRH 14:47
DX: M75.102 Unspecified rotator cuff tear or rupture of left shoulder, not specified as traumatic (principal); M19.012 Primary osteoarthritis, left shoulder; M25.462 Effusion, left knee